=== PATIENT | female | born 1950 | race Two or more races ===

== ENCOUNTER 2016-05-30 13:11 | Day surgery (SDC) | END 2016-05-30 16:06 | disposition home or self-care (01) | DX: K31.89 Other diseases of stomach and duodenum (principal); E11.9 Type 2 diabetes mellitus without complications; I10 Essential (primary) hypertension | CPT/HCPCS: 43239; 45378; 82962; 88305; 88312; J2250; J3010; Z7610 ==

== ENCOUNTER 2016-08-24 20:35 | Emergency (ER) | payer OTHER ==
[~2016-08-24] VITALS: Ht 162.6 cm; Wt 83.0 kg
[~2016-08-24 20:35] MED LIST: FAMO10TA PO; GLIP-95; HYD25 PO; IBUP-1542 PO; LISI20TA11 PO; LORA10TA58 PO; MELO-216 PO; MTF1000T; NAPR275T83 PO; SITA50TA2 PO
[2016-08-24 20:42] VITALS: Ht 162.6 cm; Wt 83.0 kg
[2016-08-24] MEDS ORDERED: HYDROCODONE/APAP (5/325) TAB PO ONE (21:30)
--- NOTE | 2016-08-24 21:55 | ERD ---
ER Documentation Chief Complaint Date/Time DATE: 08/24/16 TIME: 21:52 Chief Complaint left knee pain left hip pain x 1 month HPI 65-year-old female presents to emergency department for complaints of left knee pain and left hip pain for one month. Patient describes the pain as sharp pain, 6/10 scale, is worse upon movement. Patient did not have any trauma and affected area. Patient denies any numbness or tingling. Patient denies any fever or chills. Patient denies any redness or swelling. Patient denies any trauma on affected area. ROS All systems reviewed and are negative except as per history of present illness. Medications Home Meds Active Scripts Tramadol HCl (Tramadol HCl) 50 Mg Tablet, 50 MG PO Q6 Y for SEVERE PAIN LEVEL 7- 10, #20 TAB Prov:SHIELA WHITAKER [employer] 08/25/16 Ibuprofen* (Motrin*) 600 Mg Tab, 600 MG PO Q6, #30 TAB Prov:LUPE AMAYA PA-C 04/07/15 Reported Medications Naproxen Sodium* (Naproxen*) 275 Mg Tablet, 500 MG PO BID, TAB 05/30/16 Meloxicam (Mobic) 7.5 Mg Tablet, 15 MG PO DAILY, #30 TAB 05/30/16 Loratadine (Loratadine) 10 Mg Tab.rapdis, 10 MG PO QPM 05/30/16 Lisinopril* (Lisinopril*) 20 Mg Tablet, 20 MG PO DAILY, #30 TAB 05/30/16 Sitagliptin* (Januvia*) 50 Mg Tablet, 50 MG PO DAILY, #30 TAB 05/30/16 Hydrochlorothiazide* (Hydrochlorothiazide*) 25 Mg Tab, 25 MG PO DAILY, #30 TAB 05/30/16 Famotidine (Heartburn Relief) 10 Mg Tablet, 10 MG PO DAILY, TAB 05/30/16 Metformin* (Glucophage*) 1,000 Mg Tablet 12/27/09 Glipizide* (Glipizide*) 10 Mg Tablet 12/27/09 Allergies Allergies: Coded Allergies: Penicillins (Verified Allergy, Mild, 08/24/16) PMhx/Soc History of Surgery: Yes (HYSTERECTOMY) Anesthesia Reaction: No Hx Neurological Disorder: No Hx Respiratory Disorders: No Hx Cardiac Disorders: Yes (HTN) Hx Psychiatric Problems: No Hx Miscellaneous Medical Probl: Yes (VARICOSE VEINS BLE, DIABETES) Hx Alcohol Use: No Hx Substance Use: No Hx Tobacco Use: No Smoking Status: Never smoker FmHx Family History: No coronary disease, No diabetes, No other Physical Exam Vitals Vital Signs Date Time Temp Pulse Resp B/P Pulse Ox O2 Delivery O2 Flow Rate FiO2 08/24/16 20:42 98.0 81 18 165/81 100 Physical Exam GENERAL: The patient is well developed and appropriate for usual state of health, in no apparent distress. CHEST: Clear to auscultation bilaterally. There are no rales, wheezes or rhonchi. HEART: Regular rate and rhythm. No murmurs, clicks, rubs or gallops. No S3 or S4. ABDOMEN: Soft, nontender and nondistended. Good bowel sounds. No rebound or guarding. No gross peritonitis. No gross organomegaly or masses. No Lopez sign or McBurney point tenderness. BACK: No midline or flank tenderness. EXTREMITIES: Able to do full range of motion of the left knee left hip without any restriction but with pain, no redness and swelling noted, no deformity noted. Equal pulses bilaterally. There is no peripheral clubbing, cyanosis or edema. No focal swelling or erythema. Full range of motion. Grossly neurovascularly intact. NEURO: Alert and oriented. Cranial nerves 2-12 intact. Motor strength in all 4 extremities with 5/5 strength. Sensation grossly intact. Normal speech and gait. SKIN: There is no apparent rash or petechia. The skin is warm and dry. HEMATOLOGIC AND LYMPHATIC: There is no evidence of excessive bruising or lymphedema. No gross cervical, axillary, or inguinal lymphadenopathy. Results 24 hrs Current Medications Medications (Trade) Dose Ordered Sig/Alfred Route PRN Reason Start Time Stop Time Status Last Admin Dose Admin Acetaminophen/ Hydrocodone Bitart ([place] (5/325)) 1 tab ONCE ONCE PO 08/24/16 21:30 08/24/16 21:32 DC 08/24/16 21:36 Patient was given medication for pain here in emergency department, after treatment, patient verbalized feeling much better. Patient's pain is improved. PROCEDURE: X-ray left knee. CLINICAL INDICATION: Lateral left knee pain at the level of the proximal fibula. Reference marker is provided. TECHNIQUE: 3 views left knee. COMPARISON: None FINDINGS: No acute fracture or dislocation. Small marginal osteophyte at the lateral aspect of the medial articular femoral condyle compatible with mild degenerative changes. Soft tissues unremarkable. IMPRESSION: No acute fracture. RPTAT: [facility] Physician Annamarie Date Time Electronically viewed and signed by Physician Annamarie on 08/24/2016 23:52 RS/ CC: SHIELA WHITAKER [employer] PROCEDURE: XR Hip. CLINICAL INDICATION: Left hip pain. TECHNIQUE: AP and frog lateral views of the left hip were performed. COMPARISON: None. FINDINGS: There is normal mineralization and alignment. No fracture or osseous lesion is identified. There are normal joints without evidence of arthritis or effusion. The soft tissues are unremarkable. IMPRESSION: Unremarkable left hip. RPTAT: [facility] Physician Annamarie Date Time Electronically viewed and signed by Physician Annamarie on 08/24/2016 23:53 RS/ CC: SHIELA WHITAKER [employer] Procedures/MDM Medical Decision Making: Patient's knee pain is most likely consistent with a degenerative changes noted in the left knee, hip pain can be from hip strain. There is no suspicion for neurovascular compromise. Patient has intact sensation and circulation of the affected extremity. There is low suspicion for septic arthritis. Patient does not have any fever. Radiology exams of the affected area does not show any fracture or dislocation. Disposition: Home. Patient is given prescription for continue ibuprofen, Tramadol for severe pain . Patient was advised to elevate the affected area and apply ice on affected area. Patient was advised that if symptoms are worse, numbness, tingling, high fever, unable to move joint, worsening symptoms, to return to emergency department immediately. Otherwise, patient is advised to follow up with the primary care doctor in 5-7 days for reevaluation of symptoms. Departure Diagnosis: Primary Impression: Knee pain Laterality: left Chronicity: acute Qualified Code: M25.562 - Acute pain of left knee Additional Impression: Hip pain Laterality: left Qualified Code: M25.552 - Pain of left hip joint Condition: Stable Patient Instructions: Hip Strain, Knee Pain, Uncertain Cause Additional Instructions: Patient is given prescription for ibuprofen for pain, Tramadol for severe pain . Patient was advised to elevate the affected area and apply ice on affected area. Patient was advised that if symptoms are worse, numbness, tingling, high fever, unable to move joint, worsening symptoms, to return to emergency department immediately. Otherwise, patient is advised to follow up with the primary care doctor in 5-7 days for reevaluation of symptoms. SHIELA WHITAKER NP Aug 24, 2016 21:55
--- NOTE | 2016-08-24 23:53 | RADRPT ---
PROCEDURE: XR Hip. CLINICAL INDICATION: Left hip pain. TECHNIQUE: AP and frog lateral views of the left hip were performed. COMPARISON: None. FINDINGS: There is normal mineralization and alignment. No fracture or osseous lesion is identified. There are normal joints without evidence of arthritis or effusion. The soft tissues are unremarkable. IMPRESSION: Unremarkable left hip. RPTAT: [facility] Physician Annamarie Date Time Electronically viewed and signed by Physician Annamarie on 08/24/2016 23:53 RS/
--- NOTE | 2016-08-24 23:53 | RADRPT ---
PROCEDURE: X-ray left knee. CLINICAL INDICATION: Lateral left knee pain at the level of the proximal fibula. Reference marker is provided. TECHNIQUE: 3 views left knee. COMPARISON: None FINDINGS: No acute fracture or dislocation. Small marginal osteophyte at the lateral aspect of the medial franky cular femoral condyle compatible with mild degenerative changes. Soft tissues unremarkable. IMPRESSION: No acute fracture. RPTAT: [facility] Physician Annamarie Date Time Electronically viewed and signed by Danna Mckay Physician on 08/24/2016 23:52 RS/
[2016-08-25] MEDS ORDERED: TRAM50TA2 PO
== END 2016-08-25 00:31 | disposition home or self-care (01) ==
LOC: FTE 20:35
DX: M25.562 Pain in left knee (principal); M25.552 Pain in left hip; I10 Essential (primary) hypertension; E11.9 Type 2 diabetes mellitus without complications; Z79.84 Long term (current) use of oral hypoglycemic drugs
CPT/HCPCS: 73510; 73562; Z7502; Z7610